=== PATIENT | male | born 1970 | race African-American/Black ===

== ENCOUNTER 2019-02-22 09:01 | Emergency (ER) | payer MEDICAID ==
[~2019-02-22] VITALS: Ht 172.7 cm; Wt 98.0 kg
[~2019-02-22 09:01] MED LIST: AZEL6DRO5 EACHEYE; DIVA-75 PO; ESCI20TA PO; LOSA50TA41 PO; METF-414 PO; PANT40TA4 PO; QUET200T PO
[2019-02-22] MEDS ORDERED: SODIUM CHLORIDE 0.9% 1,000 ML IV ONE (09:45)
[2019-02-22 10:39] LABS: BASOPHILS % 0.8 % (0.0-2.0); EOSINOPHILS % 11.7 % (0.0-5.0); HEMATOCRIT. 32.2 % (42.0-52.0); HEMOGLOBIN. 10.3 g/dL (14.0-18.0); LYMPHOCYTES % 19.7 % (20.0-50.0); MEAN CORPUSCULAR HEMOGLOBIN 23.7 pg (28.0-32.0); MEAN CORPUSCULAR VOLUME 74.4 fL (80.0-94.0); MEAN PLATELET VOLUME 7.5 fl (7.4-10.4); MONOCYTES % 11.1 % (2.0-8.0); NEUTROPHILS % 56.7 % (40.0-76.0); PLATELET 394 x1000/uL (130-400); RED BLOOD CELL COUNT 4.32 mill/uL (4.7-6.1); RED CELL DISTRIBUTION WIDTH 18.2 % (11.6-14.6)
[2019-02-22 10:50] LABS: CHLORIDE 107 mEq/L (98-107)
[2019-02-22 10:57] LABS: BETA HYDROXYBUTYRATE 0.2 mMol/L (0.0-0.3)
[2019-02-22 12:49] VITALS: BP 151/91
== END 2019-02-22 13:26 | disposition home or self-care (01) ==
LOC: ER 09:23
DX: E11.65 Type 2 diabetes mellitus with hyperglycemia (principal); Z79.84 Long term (current) use of oral hypoglycemic drugs; Z79.4 Long term (current) use of insulin; I10 Essential (primary) hypertension
CPT/HCPCS: 36415; 80053; 82010; 82962; 84484; 85025; 93005; 99284; J7030; 96361

== ENCOUNTER 2020-01-09 17:40 | Emergency (ER) | payer MEDICARE, MEDICAID ==
[~2020-01-09] VITALS: Ht 170.2 cm; Wt 89.0 kg
[2020-01-09 17:42] VITALS: BP 166/100
[2020-01-09 23:59] LABS: HEMATOCRIT. 40.9 % (42.0-52.0); HEMOGLOBIN. 13.4 g/dL (14.0-18.0); MEAN CORPUSCULAR HEMOGLOBIN 25.3 pg (28.0-32.0); MEAN CORPUSCULAR VOLUME 77.3 fL (80.0-94.0); MEAN PLATELET VOLUME 7.7 fl (7.4-10.4); PLATELET 320 x1000/uL (130-400); RED BLOOD CELL COUNT 5.29 mill/uL (4.7-6.1); RED CELL DISTRIBUTION WIDTH 23.6 % (11.6-14.6)
[2020-01-10 00:07] LABS: CHLORIDE 101 mEq/L (98-107)
[2020-01-10 01:35] LABS: PLATELET ESTIMATE NORMAL
== END 2020-01-10 02:39 | disposition home or self-care (01) ==
LOC: ER 17:40
DX: Z03.818 Encounter for observation for suspected exposure to other biological agents ruled out (principal); R05 Cough; I10 Essential (primary) hypertension; E11.9 Type 2 diabetes mellitus without complications; G40.909 Epilepsy, unspecified, not intractable, without status epilepticus; R62.50 Unspecified lack of expected normal physiological development in childhood
CPT/HCPCS: 36415; 71045; 80053; 83880; 84484; 85025; 87635; 93005; 99285